=== PATIENT | male | born 1955 | race Caucasian/White ===

== ENCOUNTER → 2018-11-29 | Outpatient (CLI) | payer MEDICARE | END | disposition home or self-care (01) | LOC: RAH 06:42 | PROVIDERS: ATTEND Internal Medicine | DX: M47.26 Other spondylosis with radiculopathy, lumbar region (principal); M48.061 Spinal stenosis, lumbar region without neurogenic claudication; M51.16 Intervertebral disc disorders with radiculopathy, lumbar region | CPT/HCPCS: 72148 ==

== ENCOUNTER → 2018-12-16 | Outpatient (CLI) | payer MEDICARE ==
[~2018-12-16] MED LIST: IOHEXOL 350 MG/ML 100ML INFUS..BTL IV ONE
== END | disposition home or self-care (01) ==
LOC: OIH 07:48
PROVIDERS: ATTEND Internal Medicine
DX: N40.0 Benign prostatic hyperplasia without lower urinary tract symptoms (principal); N32.89 Other specified disorders of bladder; K57.90 Diverticulosis of intestine, part unspecified, without perforation or abscess without bleeding; N28.1 Cyst of kidney, acquired
CPT/HCPCS: 74178; Q9967

== ENCOUNTER → 2019-09-21 | Outpatient (CLI) | payer MEDICARE, OTHER ==
[~2019-09-21] MED LIST changes: +ACET1TAB12 PO; +ASPI-1197 PO; +ATEN25TA PO; +CHLO25TA3 PO; +FENO54TA6 PO; -IOHEXOL 350 MG/ML 100ML INFUS..BTL IV ONE; +METF-446 PO; +PIOG15TA66 PO; +PRAV40TA3 PO; +RAMI10CA69 PO
== END | disposition home or self-care (01) ==
LOC: RAH 08:25
PROVIDERS: ATTEND Urology
DX: N13.30 Unspecified hydronephrosis (principal); J84.10 Pulmonary fibrosis, unspecified; N40.0 Benign prostatic hyperplasia without lower urinary tract symptoms
CPT/HCPCS: 71250; 74150

== ENCOUNTER → 2019-10-18 | Outpatient (CLI) | payer OTHER | END | disposition home or self-care (01) | LOC: RAH 08:56 | PROVIDERS: ATTEND Urology | DX: N40.0 Benign prostatic hyperplasia without lower urinary tract symptoms (principal); N13.30 Unspecified hydronephrosis | CPT/HCPCS: 74176 ==

== ENCOUNTER 2019-10-19 07:28 | Day surgery (SDC) | payer OTHER ==
[2019-10-18 09:37] LABS: BASOPHILS % (AUTO) 1.3 % (0.0-5.0); HEMATOCRIT 34.2 % (42-54); LYMPHOCYTES % (AUTO) 20.5 % (21.0-51.0); MEAN CORPUSCULAR HEMOGLOBIN 29.9 pg (27.0-33.0); MEAN CORPUSCULAR HGB CONC 32.5 g/dL (32.0-36.0); MEAN CORPUSCULAR VOLUME 92.2 fL (79-99); MONOCYTES % (AUTO) 8.3 % (3.0-13.0); NEUTROPHILS % (AUTO) 63.3 % (40.0-77.0); PLATELET COUNT (AUTO) 324 K/uL (130-400); RED BLOOD CELL COUNT(AUTO) 3.71 MIL/uL (4.50-6.20); WHITE BLOOD COUNT (AUTO) 6.3 K/uL (4.8-10.8)
[2019-10-18 09:38] LABS: APPEARANCE,URINE Clear (CLEAR); BILIRUBIN,URINE Negative (NEGATIVE); COLOR,URINE Yellow (YELLOW); GLUCOSE, URINE (UA) Negative (NEGATIVE); KETONES,URINE Negative (NEGATIVE); LEUKOCYTE ESTERASE ,URINE Negative (NEGATIVE); NITRATE,URINE Negative (NEGATIVE); OCCULT BLOOD,URINE Negative (NEGATIVE); PROTEIN,URINE Negative (NEGATIVE); UROBILINOGEN,URINE 0.2 mg/dL (0.2-1.0)
[2019-10-18 09:52] LABS: CREATININE 2.8 mg/dL (0.5-1.5); POTASSIUM 4.3 mmol/L (3.5-5.1)
[2019-10-18 10:56] VITALS: BP 147/76
[2019-10-19] VITALS (17 sets, daily range): BP systolic 128–145; BP diastolic 66–78
[~2019-10-19] VITALS: Ht 175.3 cm; Wt 84.9 kg
[~2019-10-19 07:28] MED LIST changes: +GENTAMICIN 80 MG/NS 100 ML PB 100 ML IV SCH
[2019-10-19] MEDS ORDERED: IOHEXOL-350 50ML VIAL IV ONE (08:00)
[2019-10-19] MEDS ORDERED: SODIUM CHLORIDE 0.9% 1000ML 1,000 ML IV ONE (08:12)
[2019-10-19] MEDS ORDERED: LIDOCAINE PF 2% 5ML ABBOJECT ONE (08:23)
[2019-10-19] MEDS ORDERED: DEXAMETHASONE SOD PHOSPHATE 10MG/ML 1ML VIAL ONE (08:23)
[2019-10-19] MEDS ORDERED: ONDANSETRON HCL 4 MG/2 ML VIAL ONE (08:24)
[2019-10-19] MEDS ORDERED: PROPOFOL 10 MG/ML 20ML VIAL IV ONE (08:24)
[2019-10-19] MEDS ORDERED: FENTANYL CITRATE PF 50 MCG/1 ML 5ML AMP IV ONE (08:24)
[2019-10-19] MEDS ORDERED: ROCURONIUM 10MG/1ML SYR 10 MG/ML ML ONE (08:24)
[2019-10-19] MEDS ORDERED: NEOSTIGMINE 5MG/5ML SYR IV ONE (08:24)
[2019-10-19] MEDS ORDERED: GLYCOPYRROLATE 1 MG/5 ML SYRINGE ONE (08:24)
[2019-10-19] MEDS ORDERED: MIDAZOLAM HCL 1 MG/ML 2ML VIAL ONE (08:24)
[2019-10-19] MEDS: CEFTRIAXONE SODIUM 1 GM IVP SCH ×2 (08:30→09:00)
[2019-10-19] MEDS ORDERED: SUCCINYLCHOLINE CHLORIDE 20 MG/ML 10 ML VIAL ONE (08:32)
--- NOTE | 2019-10-19 08:40 | NUR ---
HOLDING AREA: DR WATKINS AWARE OF 81MG ASA TAKEN 10/18/19 @0700 OK TO PROCEED TO OR.
[2019-10-19] MEDS ORDERED: EPHEDRINE SULFATE 50 MG/ML AMPULE ONE (09:25)
[2019-10-19] MEDS ORDERED: FENTANYL CITRATE PF 50 MCG/1 ML 2ML VIAL ONE (10:44)
--- NOTE | 2019-10-19 11:55 | NUR ---
post op received pt from [facility], s/p greenlight laser, 3 way 20f[address] yeh cath in place. draining clear pink color urine. dressing to tip of penis dry and intact, pt awake and alert ,no distress noted. pt denied any pain or discomforts. plan of care discuss with patient. call light within reach.
--- NOTE | 2019-10-19 12:10 | NUR ---
yeh leg bag applied , patient instructed on yeh care, draining yeh bag. infection control. bacitrician ointment to tip of penis bid for [address] beck orders. pt verbalized understanding. pt spouse also instructed over the phone
--- NOTE | 2019-10-19 13:05 | NUR ---
PT TRANSPORTED TO PRIVATE VEHICLE VIA . VIDAL DRAINING CLEAR PINK. NO PAIN. REVIEWED SCRIPT WITH CATE. NO QUESTIONS
== END 2019-10-19 13:05 | disposition home or self-care (01) ==
LOC: DAH 07:28
PROVIDERS: ATTEND Urology
DX: N40.1 Benign prostatic hyperplasia with lower urinary tract symptoms (principal); N13.8 Other obstructive and reflux uropathy; N13.1 Hydronephrosis with ureteral stricture, not elsewhere classified; I12.9 Hypertensive chronic kidney disease with stage 1 through stage 4 chronic kidney disease, or unspecified chronic kidney disease; E11.22 Type 2 diabetes mellitus with diabetic chronic kidney disease; N18.9 Chronic kidney disease, unspecified; Z85.528 Personal history of other malignant neoplasm of kidney; Z79.82 Long term (current) use of aspirin; Z79.899 Other long term (current) drug therapy; Z79.84 Long term (current) use of oral hypoglycemic drugs; Z87.891 Personal history of nicotine dependence; Z90.5 Acquired absence of kidney; Z72.89 Other problems related to lifestyle; Z82.49 Family history of ischemic heart disease and other diseases of the circulatory system
CPT/HCPCS: 36415; 52648; 71045; 80048; 81003; 82948 ×2; 85025; 87088; 93005; A4215; A4221; A4222; A4223; A4354; A4358; A4657; A4663; C1758; C1769; J0330; J0696; J1100; J1580; J2001; J2250; J2405; J2704; J2710; J3010 ×2; J3490 ×2; J7030 ×2; J7120; Q9967

== ENCOUNTER → 2019-11-02 | Outpatient (CLI) | payer OTHER ==
[~2019-11-02] MED LIST changes: -GENTAMICIN 80 MG/NS 100 ML PB 100 ML IV SCH
== END | disposition home or self-care (01) ==
LOC: RAH 10:50
PROVIDERS: ATTEND Urology
DX: N28.1 Cyst of kidney, acquired (principal); N13.30 Unspecified hydronephrosis; Z90.5 Acquired absence of kidney
CPT/HCPCS: 76770

== ENCOUNTER → 2020-04-23 | Outpatient (CLI) | payer OTHER | END | disposition home or self-care (01) | LOC: RAH 07:22 | PROVIDERS: ATTEND Urology | DX: N40.0 Benign prostatic hyperplasia without lower urinary tract symptoms (principal); I70.0 Atherosclerosis of aorta; Z85.528 Personal history of other malignant neoplasm of kidney; Z90.89 Acquired absence of other organs | CPT/HCPCS: 74176 ==

== ENCOUNTER → 2021-05-02 | Outpatient (CLI) | payer OTHER | END | disposition home or self-care (01) | LOC: RAH 07:43 | PROVIDERS: ATTEND Urology | DX: J44.9 Chronic obstructive pulmonary disease, unspecified (principal); K57.30 Diverticulosis of large intestine without perforation or abscess without bleeding | CPT/HCPCS: 71046; 74150 ==

== ENCOUNTER → 2022-05-06 | Outpatient (CLI) | payer OTHER | END | disposition home or self-care (01) | LOC: RAH 11:19 | PROVIDERS: ATTEND Urology | DX: N40.0 Benign prostatic hyperplasia without lower urinary tract symptoms (principal); M47.815 Spondylosis without myelopathy or radiculopathy, thoracolumbar region | CPT/HCPCS: 71046 ==

== ENCOUNTER → 2022-05-09 | Outpatient (CLI) | payer OTHER | END | disposition home or self-care (01) | LOC: RAH 09:11 | PROVIDERS: ATTEND Urology | DX: C64.1 Malignant neoplasm of right kidney, except renal pelvis (principal); M47.815 Spondylosis without myelopathy or radiculopathy, thoracolumbar region; Z90.5 Acquired absence of kidney | CPT/HCPCS: 74150 ==

== ENCOUNTER → 2023-05-20 | Outpatient (CLI) | payer OTHER | END | disposition home or self-care (01) | LOC: RAH 08:18 | PROVIDERS: ATTEND Urology | DX: K76.0 Fatty (change of) liver, not elsewhere classified (principal); I70.0 Atherosclerosis of aorta; K80.20 Calculus of gallbladder without cholecystitis without obstruction; M47.815 Spondylosis without myelopathy or radiculopathy, thoracolumbar region; Z90.5 Acquired absence of kidney; Z85.528 Personal history of other malignant neoplasm of kidney | CPT/HCPCS: 71046; 74150 ==

== ENCOUNTER → 2024-08-09 | Outpatient (CLI) | payer OTHER ==
[~2024-08-09] MED LIST changes: -RAMI10CA69 PO; +RAMI10CA76 PO
--- NOTE | 2024-08-09 14:35 | HMCIMG ---
US PELVIC NON-OB LIMITED REASON: PERSONAL HX OF MALIGNANT NEOPLASM COMPARISON: None TECHNIQUE: Pelvic ultrasound was performed with attention to the urinary bladder. FINDINGS: There is a distended Prevoid volume was 771 cc. Postvoid volume after 2 attempts at voiding was 306 cc. There are multiple small diverticula, largest 1.3 cm. Bladder wall appears mildly to moderately thickened. There are no focal masses. Prostate is 20 cc. IMPRESSION: 1. Mildly to moderately thickened bladder wall, there are several small diverticula. 2. Large postvoid residual. 3. Prostate volume 20 cc.
--- NOTE | 2024-08-09 15:25 | HMCIMG ---
CT ABDOMEN W/O CONTRAST REASON: Personal history of other malignant neoplasm of kidney COMPARISON: 05/20/2023 FINDINGS: Lung bases are clear. There are no focal liver lesions. Liver is not enlarged.. Spleen and pancreas appear unremarkable. The gallbladder appears normal as well. Right kidney is absent. Left kidney appears normal. There is no evidence of mass in the right renal bed. There is no retroperitoneal lymphadenopathy and there are no pulmonary nodules in the lung base, there is no evidence of metastatic disease. Bowel loops appear unremarkable. This includes normal appearance of the appendix There is no evidence of free fluid or intraperitoneal air. There are no focal fluid collections. Aorta and retroperitoneum appear normal. The anterior abdominal wall is intact. Osseous structures appear unremarkable. IMPRESSION: 1. Absent right kidney. 2. Otherwise unremarkable exam, no CT evidence of metastatic disease. CT was performed with one or more following dose reduction techniques: automated exposure control, adjustment of the mA and kv according to patient's size, or use of a iterative reconstruction technique.
== END | disposition home or self-care (01) ==
LOC: RAH 13:07
PROVIDERS: ATTEND Internal Medicine
DX: K57.90 Diverticulosis of intestine, part unspecified, without perforation or abscess without bleeding (principal); N32.89 Other specified disorders of bladder; R93.89 Abnormal findings on diagnostic imaging of other specified body structures; Z90.5 Acquired absence of kidney; Z85.528 Personal history of other malignant neoplasm of kidney
CPT/HCPCS: 74150; 76857